=== PATIENT | female | born 1945 | race Caucasian/White ===

== ENCOUNTER 2022-01-28 14:11 | Outpatient (REF) | payer MEDICARE, SELFPAY ==
[2022-01-28 15:50] LABS: Appearance Urine Clear; Color Urine Yellow; Glucose Urine UA Negative (Negative); Leukocyte Esterase Urine Trace (Negative); Nitrite Urine Negative (Negative); Specific Gravity - Urine 1.025 (1.005-1.025); UMIC TRIGGER UA YES; Urine Blood Negative (Negative); Urine Ketones Negative (Negative); Urine Protein Negative (Neg-Trace)
[2022-01-28 15:56] LABS: Bacteria Urine None Seen (None Seen); Hyaline Casts Urine 0-2 /LPF (0-2); RBC Urine 0-2 /HPF (0-2); Squamous Epithelial Cell Urine 0-2 /HPF (0-2); WBC Urine 0-5 /HPF (0-5)
== END 2022-01-28 14:12 | disposition home or self-care (01) ==
LOC: HO.LAB 14:11
PROVIDERS: Visit Provider Psychiatry & Neurology Neurology
DX: N31.9 Neuromuscular dysfunction of bladder, unspecified (principal)
CPT/HCPCS: 81001

== ENCOUNTER 2022-02-01 16:23 | Outpatient (REF) | payer MEDICARE, SELFPAY ==
--- NOTE | ~2022-02-01 | MR_ITS ---
EXAMINATION: MR CERVICAL SPINE WITHOUT AND WITH CONTRAST CLINICAL INFORMATION: Demyelinating disease. Lhermitte's sign. Abnormal brain MRI. COMPARISON: MRI scan of the brain is again [facility] 11/15/2021. TECHNIQUE: MRI of the cervical spine was obtained using routine sequences with and without contrast. Intravenous contrast: Gadavist 6.5 mL. FINDINGS: VERTEBRAL BODIES AND PARASPINAL SOFT TISSUES: There is nonspecific reversal of the normal cervical lordosis. There is multilevel narrowing of intervertebral disc height with loss of signal which is most severe at C4-C5, C5-C6 and C6-C7. There are small multilevel marginal osteophytes anteriorly. There are degenerative endplate contour changes with mild edematous signal at C6-C7 particularly toward the right with milder changes at C5-C6. There is a small Schmorl's node in the inferior endplate of C6. Vertebral body heights are maintained and no fractures are demonstrated. There is an area of increased T1 and T2 signal in the base of the dens, most consistent with a hemangioma. Apart from the edematous endplate changes, there is no abnormal enhancement of the osseous structures. Overall, marrow signal is homogenous. The regional soft tissues are unremarkable. CERVICOMEDULLARY JUNCTION AND VISUALIZED POSTERIOR FOSSA: The craniocervical structures appear normal. There is a small focus of increased T2 and STIR signal in the findings, corresponding to findings on the prior study. There is equivocal increased signal in the ventral spinal cord at the level of C6-C7, without abnormal enhancement. SPINAL LEVELS: C2-C3: There is mild bilateral facet. There is a soft posterior disc protrusion which effaces CSF ventral to the cord, but there is no spinal cord compression or central stenosis. The neural foramina are patent bilaterally. C3-C4: There is moderate right and mild left facet arthropathy. There is a shallow posterior disc protrusion without cord compression or central stenosis. There are uncovertebral osteophytes and there is moderate right and mild left foraminal narrowing. C4-C5: There is mild bilateral facet arthropathy. There is a broad-based posterior disc protrusion with flattening of the ventral spinal cord and there is effacement of CSF around the cord. There is moderate central stenosis. There are uncovertebral osteophytes and there is severe bilateral foraminal narrowing. C5-C6: The facet joints appear normal. There is a broad-based posterior disc protrusion with effacement of CSF around the cord and with mild flattening of the cord, and there is moderate central stenosis. There are uncovertebral osteophytes and there is moderate bilateral foraminal narrowing. C6-C7: The facet joints appear normal. There is a broad-based posterior disc protrusion with some effacement of CSF around the cord and there is mild central stenosis. There are uncovertebral osteophytes and there is severe right and moderate left foraminal narrowing. C7-T1: There is mild left facet arthropathy. Posterior disc contour is normal. There is no cord compression or central stenosis and the neural foramina are patent bilaterally. MR/MR cervical spine wo/w con IMPRESSION: 1. There are no acute fractures or subluxations. There is no abnormal enhancement of the cervical spinal cord. There are edematous endplate signal changes with enhancement at C5-C6. There is no abnormal enhancement of the spinal cord. 2. At C4-C5 there is a broad-based posterior disc protrusion with flattening of the cord and there is moderate central stenosis. There is severe bilateral foraminal narrowing. 3. At C5-C6 there is a broad-based posterior disc protrusion with mild flattening of the cord and there is moderate central stenosis. There is moderate bilateral foraminal narrowing. 4. At C6-C7 there is a broad-based posterior disc protrusion with mild central stenosis. There is severe right and moderate left foraminal narrowing. There is equivocal increased signal in the ventral spinal cord at this level. 5. Spondylitic and facet arthropathic changes are also demonstrated at other levels as described above.
== END 2022-02-01 16:24 | disposition home or self-care (01) ==
LOC: HO.MRI 16:23
PROVIDERS: Visit Provider Psychiatry & Neurology Neurology
DX: G37.9 Demyelinating disease of central nervous system, unspecified (principal)
CPT/HCPCS: 72156; A9585

== ENCOUNTER 2024-09-07 15:21 | Outpatient (AMB) | payer MEDICARE, SELFPAY ==
--- NOTE | 2024-09-07 15:33 | A.OFFVIS_ITS ---
Intake Visit Reasons: abnormal MRI last seen 2022 Allergies No Known Allergies Allergy (Verified 09/03/24 15:02) HPI Comments Details: 78 yr old woman had another episode of speech disturbance where she she was unable to say what she wanted. It lasted 5 minutes and she had a bad headache for an hour and so she went to the ER. She also had sudden onset of inability to get out words and couldn't speak for about 5 min. in 2021. There was no facial droop, visual disturbance, lateralized weakness or numbness. She was still able to drive. Her friend thought that there was something wrong. After that she developed a bad headache that lasted for an hour or 2 and then she felt tired afterwards. She took Tylenol and rested. Since then, she has felt somewhat tired. She gets headaches off and on. She has chronic bladder control problems with urgency and incontinence. She gets occasional episodes of numbness that start in the base of the neck and go down both arms lasting for a few minutes but have occurred 2 or 3 times. She was seen by her primary care physician and had a normal echocardiogram, negative Lyme titers, MRI of the brain which showed extensive white matter disease bilaterally, and EKG. 02/14 MRI C spine: There are no acute fractures or subluxations. There is no abnormal enhancement of the cervical spinal cord. There are edematous endplate signal changes with enhancement at C5-C6. There is no abnormal enhancement of the spinal cord. At C4-C5 there is a broad-based posterior disc protrusion with flattening of the cord and there is moderate central stenosis. There is severe bilateral foraminal narrowing. At C5-C6 there is a broad-based posterior disc protrusion with mild flattening of the cord and there is moderate central stenosis. There is moderate bilateral foraminal narrowing. At C6-C7 there is a broad-based posterior disc protrusion with mild central stenosis. There is severe right and moderate left foraminal narrowing. There is equivocal increased signal in the ventral spinal cord at this level. She also has insomnia. [facility] Medical History (Updated 09/07/24 @ 16:20 by Silvia Saenz MD) GERD (gastroesophageal reflux disease) Hypothyroidism Insomnia Neurogenic bladder Demyelinating disease Cerebral microvascular disease Review of Systems Const Details: Sleep:? Difficulty getting to sleep?admits.? Difficulty maintaining sleep?admits .? Urge to move legs?admits.? Teeth grinding?denies.? Shouting or Kicking during sleep?denies.? Abnormal behavior during sleep?denies.? Excessive sleep?denies.? Snoring?denies.? Daytime sleepiness?denies.? ?? General/Constitutional:? Change in appetite?denies.? Chills?denies.? Fatigue?admits.? Fever?denies .? Weight gain?denies.? Weight loss?denies.? ?? Ophthalmologic:? Blurred vision?denies.? Diminished visual acuity?denies.? ?? ENT:? Stuffiness?denies.? Decreased hearing?denies.? Dry mouth?denies.? Ear pain?denies.? Nosebleed?denies.? Ringing in the ears?denies.? Sinus pain?denies .? Sore throat?denies.? Swollen glands?denies.? ?? Endocrine:? Cold intolerance?denies.? Excessive thirst?denies.? Frequent urination? denies.? Heat intolerance?denies.? ?? Respiratory:? Shortness of breath?admits.? Chest pain?denies.? Cough?denies.? ?? Breast:? Breast lump?denies.? Nipple discharge?denies.? ?? Cardiovascular:? Chest pain at rest?denies.? Chest pain with exertion?denies.? Claudication?denies.? Dizziness?denies.? Fluid accumulation in the legs?denies.? Irregular heartbeat?denies.? Palpitations?denies.? ?? Gastrointestinal:? Abdominal pain?denies.? Constipation?denies.? Diarrhea?denies.? Difficulty swallowing?denies.? Heartburn?admits.? Nausea?denies.? Rectal bleeding?denies.? ?? Hematology:? Easy bruising?denies.? Prolonged bleeding?denies.? ?? Genitourinary:? Frequent urination?admits.? Urgency?admits.? Incontinence?admits.? Erectile Dysfunction?denies.? ?? Musculoskeletal:? Neck pain?denies.? Back pain?admits.? Muscle aches?admits.? Painful joints?denies.? Sciatica?denies.? Weakness?denies.? ?? Podiatric:? Difficulty walking?denies.? Foot numbness?denies.? ?? Neurologic:? Difficulty swallowing?denies.? Balance difficulty?denies.? Coordination? normal.? Difficulty speaking?denies.? Dizziness?denies.? Fainting?denies.? Gait abnormality?denies.? Headache?admits.? Loss of strength?denies.? Loss of use of extremity?denies.? Low back pain?denies.? Memory loss?admits.? Seizures?denies.? Tics?denies.? Tingling/Numbness?denies.? Transient loss of vision?denies.? Tremor?denies.? ?? Psychiatric:? Anxiety?denies.? Auditory/visual hallucinations?denies.? Delusions?denies .? Depressed mood?denies.? Stressors?denies.? Substance abuse?denies.? Suicidal thoughts?denies.? ?? Physical Exam Neuro Other: Neurological: ? Abnormal neurological findings:??none.? Mental Status:?alert and oriented X 3,?Normal attention, orientation, memory and affect.? Cranial Nerves:?Pupils are equal, round and reactive to light. Fundoscopy shows normal disc bilaterally. External occular muscles are intact. Visual encarnacion are full, no ptosis. Face is symmetrical, no facial weakness or droop. Facial sensations are normal. Tongue protrudes in midline. Palate elevates symmetrically. Shoulder shrugging is normal..? Motor Examination:?Normal muscle tone, bulk and strength,?No atrophy or fasciculations,?No drift of the extended upper extremities,?Deep tendon reflexes are 2+?,?Plantars are flexor?.? Straight Leg Raising:?90 degrees.? Sensory Exam:?Normal light touch, temperature, pinprick, vibration and joint-position sensations?,?Rhomberg sign is absent.? Coordination:?no ataxia,?no titubation,?[id number], [id number]-[id number] test and rapid alternating movements were normal.? Gait Exam:?Within normal limits.? Cerebellar Signs:?Ajlayy-[id number] and rofj-[id number]-pyqx is normal,?no dysdiadochokinesia?.? Extrapyramidal System:?No tremor, rigidity with normal facial expressions,?No bradykinesia, no bradyphrenia. Normal arm swing and posture. No propulsion or retropulsion.? Speech:?Normal,?no dysphasia or dysarthria..? Mini Mental Status Exam: ? Level of Consciousness:?Alert.? Orientation:?Knows correct year, month, date, day and season,?Knows correct city, county and state. Knows correct location and floor.? Registration:?Able to register 3 objects.? Attention:?Serial 7's performed accurately.? Recall:?Able to recall 3 out of 3 objects.? Language:?Normal spontaneous speech, fluency, repetition,naming, comprehension, reading and writing.? Total Score ?30/30.? General Examination: ? GENERAL APPEARANCE:?normal,?in no acute distress.? HEAD:?normocephalic,?atraumatic.? EYES:?sclera non-icteric,?conjunctiva clear.? EARS:?auditory canal clear,?tympanic membrane intact, clear.? NOSE:?no lesions.? ORAL CAVITY:?gums normal,?mucosa moist,?no lesions.? THROAT:?clear.? NECK/THYROID:?no cervical lymphadenopathy,?thyroid normal,?neck supple, full range of motion,?no carotid bruit.? SKIN:?no rashes,?no significant birthmarks.? HEART:?S1, S2 normal,?no murmurs.? LUNGS:?clear anteriorly and posteriorly.? CHEST:?no gross rib deformity,?clear to auscultation.? BACK:?normal exam of spine.? EXTREMITIES:?no edema.? PERIPHERAL PULSES:?normal.? PSYCH:?alert, oriented,?cognitive function intact,?cooperative with exam.? Assessment & Plan Assessment & Plan (1) Migraine with aura: Code(s): G43.109 - Migraine with aura, not intractable, without status migrainosus Category: Medical (2) Cerebral microvascular disease: Code(s): I67.89 - Other cerebrovascular disease Category: Medical Plan Her f/u MRI is unchanged and shows extensive white matter disease. I have reassured her to some degree that these are benign , not TIA. They will recur periodically. If the deficit lats > 20 minutes , then she should go to the ER. Coding Level of Care Code New Pt Level 5 (55013) Diagnoses Migraine with aura G43.109 Cerebral microvascular disease I67.89
== END 2024-09-07 17:01 | disposition home or self-care (01) ==
LOC: HO.HSM 15:22
PROVIDERS: PCP Pediatrics; Referring Provider Pediatrics; Visit Provider Psychiatry & Neurology Neurology
DX: G43.109 Migraine with aura, not intractable, without status migrainosus (principal); I67.89 Other cerebrovascular disease
CPT/HCPCS: 99204

== ENCOUNTER → 2024-09-07 15:21 | Outpatient (BNVA) | payer MEDICARE, SELFPAY | PROVIDERS: PCP Pediatrics; Referring Provider Pediatrics; Visit Provider Psychiatry & Neurology Neurology | DX: G43.109 Migraine with aura, not intractable, without status migrainosus (principal); I67.89 Other cerebrovascular disease | CPT/HCPCS: 99202 ==